=== PATIENT | female | born 1970 | race Caucasian/White ===

== ENCOUNTER → 2017-01-04 | Outpatient (CLI) | payer BC ==
--- NOTE | 2017-01-04 09:28 | RAD ---
Esophagram, 01/04/2017: History: Food and liquids get stuck, previous dilatation of esophageal stricture The study was performed utilizing high density and regular liquid barium. 4.4 minutes of fluoroscopy time is utilized. 13 dynamic and static fluoroscopic sequences were recorded. The swallowing mechanism is intact. There is no obstruction to flow of the barium through the cervical esophagus. There are scattered tertiary contractions in the thoracic esophagus. This results in abnormal propulsion with stasis of some of the materials in the esophagus in the recumbent position. A small sliding-type hiatal hernia was intermittently visualized. No gastroesophageal reflux was observed. No esophageal stricture or mass was delineated. IMPRESSION: 1. Abnormal esophageal peristalsis with scattered tertiary contractions. 2. Small sliding-type hiatal hernia.
== END | disposition home or self-care (01) ==
LOC: RAD 08:14
PROVIDERS: ATTEND Internal Medicine Gastroenterology
DX: K22.2 Esophageal obstruction (principal); K31.89 Other diseases of stomach and duodenum; K44.9 Diaphragmatic hernia without obstruction or gangrene
CPT/HCPCS: 74220

== ENCOUNTER → 2017-10-21 | Outpatient (CLI) | payer BC ==
--- NOTE | 2017-10-22 09:09 | RAD ---
Abdomen, 2 views, 10/21/2017: HISTORY: Central abdominal pain Supine and upright views of the abdomen were obtained. There are surgical clips in the right upper quadrant compatible with a previous cholecystectomy. Gas is present in large and small bowel in a nonspecific pattern. No free air seen in the abdomen. There is no evidence of organomegaly or abnormal abdominal calcification. A small linear radiopacity is projected over the lower chest at the midline at the T8 level. This probably represents an artifact on the surface of the patient. Some sort of surgical implant is less likely. Clinical correlation suggested. IMPRESSION: No acute abdominal abnormality is detected. Electronically signed by: Alfonso Mcghee MD (10/22/2017 9:05 AM) [facility]
== END | disposition home or self-care (01) ==
LOC: RAD 19:00
PROVIDERS: ATTEND Nurse Practitioner Family
DX: R10.84 Generalized abdominal pain (principal); Z90.49 Acquired absence of other specified parts of digestive tract
CPT/HCPCS: 74021

== ENCOUNTER → 2019-04-28 | Outpatient (CLI) | payer BC ==
--- NOTE | 2019-04-29 10:32 | RAD ---
EXAM: 3 views left ankle DATE: 04/28/2019 11:20 AM INDICATION: Left ankle pain COMPARISON: No Prior FINDINGS/ IMPRESSION: No evidence of acute fracture or dislocation. Ankle mortise is congruent. Talar dome is intact. Mild ankle soft tissue swelling is seen. Small os trigonum is noted. Electronically signed by: Israel eCe MD (04/29/2019 10:29 AM) [id number]
== END | disposition home or self-care (01) ==
LOC: PMG 11:13
PROVIDERS: ATTEND Physician Assistant Medical
DX: M79.89 Other specified soft tissue disorders (principal); M25.572 Pain in left ankle and joints of left foot
CPT/HCPCS: 73610

== ENCOUNTER → 2020-02-23 | Outpatient (CLI) | payer BC ==
--- NOTE | 2020-02-23 16:18 | RAD ---
AP and Lateral Views of the Chest 02/23/2020 4:01 PM Indication: Reason: SHORTNESS OF BREATH W LITTLE EXERTION, DIZZINESS / Spl. Instructions: / History: Comparison: None Findings: There is no focal consolidation or infiltrate identified. The cardiomediastinal silhouette is within normal limits. There is no evidence of pneumothorax or pleural effusion. Disc space narrowing is seen throughout the midthoracic spine most likely reflecting degenerative disc disease. No acute osseous abnormalities are identified. Impression: No evidence of acute cardiopulmonary process. Electronically signed by: Boo Guzman MD (02/23/2020 4:15 PM) [id number]
== END ==
LOC: DXRAD 15:54
DX: R06.00 Dyspnea, unspecified (principal); M48.04 Spinal stenosis, thoracic region
CPT/HCPCS: 71046

== ENCOUNTER 2020-04-15 21:34 | Emergency (ER) | payer BC ==
[~2020-04-15] VITALS: Ht 157.5 cm; Wt 100.0 kg
[2020-04-15 21:54] VITALS: BP 140/79
[2020-04-15] MEDS ORDERED: METH10TA2 PO (22:07)
[2020-04-15] MEDS ORDERED: HYDR-3165 PO (22:07)
--- NOTE | 2020-04-15 22:07 | PHYS DOC ---
Past History Past Medical History: Endometriosis, Hypertension, Other Additional Past Medical Histor: CHRONIC BACK PAIN, Past Surgical History: Hysterectomy, Tonsillectomy, Other Additional Past Surgical Histo: PULM, THORACIC SX Alcohol Use: Rarely General Adult EDM: Chief Complaint: PAIN CONTROL HPI: HPI: Patient is a 49-year-old female coming in for concern for her pain medications and possibly withdrawal. Patient is a chronic pain patient and was supposed to have her prescription sent out to the pharmacy 2 days ago, took her last dose of medication this morning. Patient has a history of having severe withdrawals before and is scared. Patient is tearful states she has no new injuries, is just worried about withdrawal if she does not have her opioid medications. Review of Systems: Review of Systems: Constitutional: Denies fever or chills Eyes: Denies change in visual acuity HENT: Denies nasal congestion or sore throat Respiratory: Denies cough or shortness of breath Cardiovascular: Denies chest pain or edema GI: Denies abdominal pain, nausea, vomiting, bloody stools or diarrhea : Denies dysuria Musculoskeletal: Denies back pain or joint pain Integument: Denies rash Neurologic: Denies headache, focal weakness or sensory changes Endocrine: Denies polyuria or polydipsia Lymphatic: Denies swollen glands Psychiatric: Denies depression or anxiety Current Medications: Current Meds: Current Medications Medications (Trade) Dose Ordered Sig/Soniya Start Time Stop Time Status Last Admin Dose Admin Acetaminophen/ Hydrocodone Bitart (Lortab 5/325) 1 tab 1X ONCE 04/15/20 22:15 04/15/20 22:16 UNV Methadone HCl (Dolophine) 10 mg 1X STAT 04/15/20 22:01 04/15/20 22:02 UNV Allergies: Allergies: Allergies Coded Allergies Type Severity Reaction Last Updated Verified Penicillins Allergy Unknown 04/15/20 Yes codeine Allergy Unknown 04/15/20 Yes gabapentin Allergy Unknown 04/15/20 Yes pregabalin Allergy Unknown 04/15/20 Yes prochlorperazine Allergy Unknown 04/15/20 Yes tizanidine Allergy Unknown 04/15/20 Yes Physical Exam: PE: Constitutional: Well developed, well nourished, no acute distress, non-toxic appearance. [] HENT: Normocephalic, atraumatic, bilateral external ears normal, oropharynx moist, no oral exudates, nose normal. [] Eyes: PERRLA, EOMI, conjunctiva normal, no discharge. [] Neck: Normal range of motion, no tenderness, supple, no stridor. [] Cardiovascular:Heart rate regular rhythm, no murmur [] Lungs & Thorax: Bilateral breath sounds clear to auscultation [] Abdomen: Bowel sounds normal, soft, no tenderness, no masses, no pulsatile masses. [] Skin: Warm, dry, no erythema, no rash. [] Back: No tenderness, no CVA tenderness. [] Extremities: No tenderness, no cyanosis, no clubbing, ROM intact, no edema. [] Neurologic: Alert and oriented X 3, normal motor function, normal sensory function, no focal deficits noted. [] Psychologic: Affect normal, judgement normal, mood normal. [] Current Patient Data: Vital Signs: Vital Signs Date Time Temp Pulse Resp B/P (MAP) Pulse Ox O2 Delivery O2 Flow Rate FiO2 04/15/20 21:54 96.6 104 18 140/79 (99) 98 Room Air EKG: EKG: [] Radiology/Procedures: Radiology/Procedures: [] Heart Score: Risk Factors: Risk Factors: DM, Current or recent (<one month) smoker, HTN, HLP, family history of CAD, obesity. Risk Scores: Score 0 - 3: 2.5% MACE over next 6 weeks - Discharge Home Score 4 - 6: 20.3% MACE over next 6 weeks - Admit for Clinical Observation Score 7 - 10: 72.7% MACE over next 6 weeks - Early Invasive Strategies Course & Med Decision Making: Course & Med Decision Making Patient's request consistent with [facility]. Last prescription filled for 28 d ays for methadone and norco own was March 16. There is no new written or filled prescription since then. [] Dragon Disclaimer: Dragon Disclaimer: This electronic medical record was generated, in whole or in part, using a voice recognition dictation system. Departure Departure: Impression: Primary Impression: Chronic back pain Disposition: 01 DC HOME SELF CARE/HOMELESS Condition: STABLE Referrals: JOSE G BARAJAS (PCP) Patient Instructions: Opiate Dependence Scripts Methadone Hcl (METHADONE HCL) 10 Mg Tablet 1 TAB PO BID for pain for 4 Days, #8 TAB Prov: FLORIN BENAVIDES MD 04/15/20 Hydrocodone Bit/Acetaminophen (NORCO 5-325 TABLET) 1 Each Tablet 1 TAB PO BID for pain for 4 Days, #8 TAB Prov: FLORIN BENAVIDES MD 04/15/20 FLORIN BENAVIDES MD Apr 15, 2020 22:07
[2020-04-15] MEDS ORDERED: HYDROcodone/APAP 5/325MG 1 TAB TABLET PO ONE (22:30)
[2020-04-15] MEDS ORDERED: METHADONE 5 MG TABLET. PO ONE (22:45)
== END 2020-04-15 23:03 | disposition home or self-care (01) ==
LOC: ER 21:34
DX: G89.29 Other chronic pain (principal); M54.9 Dorsalgia, unspecified; I10 Essential (primary) hypertension; Z88.0 Allergy status to penicillin; Z88.5 Allergy status to narcotic agent; Z88.8 Allergy status to other drugs, medicaments and biological substances
CPT/HCPCS: 99283